=== PATIENT | female | born 1945 | race Caucasian/White ===

== ENCOUNTER 2017-10-17 16:04 | Emergency (ER) | payer MEDICARE, SELFPAY ==
[2017-10-17 16:09] VITALS: BP 145/84; PULSE 67; RESP 20; O2SAT 100
--- NOTE | 2017-10-17 16:24 | PC.NURSE ---
Pt reports h/o epilepsy. reports last seizure about 1 month ago. takes Keppra daily. Reports when i get worked up sometimes i have seizures pt calmed by RN and advised we will take some XR's. awaiting Juan Pablo velazco. Seizure pads in place for safety
--- NOTE | 2017-10-17 16:35 | DI.RAD.S_ITS ---
PROCEDURE: XR HIP W PEL IF DONE RT 2V INDICATIONS: hip pain after fall. TECHNIQUE: 2 views of the hip were acquired. COMPARISON: None. FINDINGS: Bones: No fractures or dislocations. No suspicious bony lesions. The visualized pelvic ring appears intact. Soft tissues: No suspicious soft tissue calcifications or masses. IMPRESSION: No trauma found. Dictated by: Pravin Velazquez M.D. on 10/17/2017 at 17:00 Approved by: Pravin Velazquez M.D. on 10/17/2017 at 17:00
--- NOTE | 2017-10-17 16:46 | DI.RAD.S_ITS ---
PROCEDURE: XR ANKLE RT MIN 3V INDICATIONS: ankle pain after fall TECHNIQUE: 3 views of the ankle were acquired. COMPARISON: None. FINDINGS: Bones: No fractures or dislocations. Ankle mortise is normally aligned. No suspicious bony lesions. Soft tissues: No tibiotalar joint effusion. Achilles tendon appears normal. IMPRESSION: No trauma. Dictated by: Pravin Velazquez M.D. on 10/17/2017 at 17:02 Approved by: Pravin Velazquez M.D. on 10/17/2017 at 17:03
--- NOTE | 2017-10-17 17:16 | ED.FALL ---
HPI - Fall <Jaycee Al PA-C - Last Filed: 10/17/17 22:30> General Chief Complaint: Fall Stated Complaint: RT FOOT INJURY AND HIP Time Seen by Provider: 10/17/17 17:16 Source: patient and family Limitations: no limitations History of Present Illness HPI Narrative: This 71-year-old female comes in due to ground level fall. She twisted her right ankle on a rock, then fell onto her knees and her right ankle. She states that she has had severe pain since then and can't bear weight. She initially felt most of the pain in her ankle, but states she feels like the pain radiates all the way from her low back and hip area down her leg, but also feels like it is numb between her right ankle and knee. She states that it is hard for her to tell whether the leg is weak, thinks that her inability to move it is due to pain. She denies any head contusion or LOC. She denies any neck pain or any other injury. She states that she simply slipped, no chest pain, palpitations or other new symptoms preceding the fall Related Data Home Medications Medication Instructions Recorded Confirmed Calcium-Magnesium Complex 1 tab PO DAILY 10/17/17 10/17/17 Dry Vitamin D 1 tab PO DAILY 10/17/17 10/17/17 cyanocobalamin (vitamin B-12) 1,000 mcg PO DAILY 10/17/17 10/17/17 [Vitamin B-12] ibuprofen [Advil] 1 tab PO PRN PRN 10/17/17 10/17/17 levetiracetam 750 mg PO Q12H 10/17/17 10/17/17 Previous Rx's Medication Instructions Recorded diazepam [Valium] 2 mg PO Q8H PRN #7 tab 10/17/17 Allergies Allergy/AdvReac Type Severity Reaction Status Date / Time acetaminophen [From Tylenol] Allergy Verified 10/17/17 16:29 aspirin Allergy Verified 10/17/17 16:29 codeine Allergy Verified 10/17/17 16:29 latex Allergy Verified 10/17/17 16:29 levofloxacin [From Levaquin] Allergy Verified 10/17/17 16:29 Penicillins Allergy Verified 10/17/17 16:29 Exam <Jaycee Al PA-C - Last Filed: 10/17/17 22:30> Narrative Exam Narrative: GENERAL APPEARANCE: Patient sitting comfortably, in no distress. LUNGS: Clear to auscultation bilaterally. HEART: Rate and rhythm regular with faint systolic murmur, normal S1 and S2, no S3 or S4. MUSCULOSKELETAL: Point tender over the right inferior paraspinal musculature and SI joint. She does not seem tender over the lateral hip, but is tender at the proximal medial femur. No tenderness over the distal femur, knee, tibia or fibula. Tender over the right medial ankle around the malleolus. She has virtually no a ROM of any joint in her right lower extremity including the toes secondary to tenderness, tolerates passive range of motion of the knee but no external rotation of the hip at all secondary to tenderness, +Trent's test NEUROVASCULAR: Sensation is grossly intact over the lower extremities. Difficult to palpate right PT pulse secondary to tenderness, but all pedal pulses are easily audible with Doppler EXTREMITIES: No cyanosis, no edema Initial Vital Signs Initial Vital Signs: Vital Signs Pulse Rate 67 10/17/17 16:09 Respiratory Rate 20 10/17/17 16:09 Blood Pressure 145/84 H 10/17/17 16:09 Pulse Oximetry 100 10/17/17 16:09 <Benjamin Frias MD - Last Filed: 10/18/17 03:13> Initial Vital Signs Initial Vital Signs: Vital Signs Pulse Rate 67 10/17/17 16:09 Respiratory Rate 20 10/17/17 16:09 Blood Pressure 145/84 H 10/17/17 16:09 Pulse Oximetry 100 10/17/17 16:09 Course <Jaycee Al PA-C - Last Filed: 10/17/17 22:30> Additional Information: Due to patient's degree of pain and immobility, I asked Dr. Frias to evaluate her as well. He agrees with evaluation and treatment plan. She does not appear to have any acute fracture. Patient was able to mobilize with ankle immobilizer and crutches. She is visiting from out of town and understands that she should return if any acutely worsening symptoms. She did have significant improvement in her pain with ibuprofen and a low dose of Valium. She was given 1 tablet to take home and split in half for tonight or morning if needed and a small prescription to take to the pharmacy. Orders Ordered: ED Orders 10/17/17 19:13 CT pelvis wo con Stat Discontinued Medications Diazepam (Valium) 2.5 mg PO NOW ONE Stop: 10/17/17 18:11 Last Admin: 10/17/17 18:42 Dose: 2.5 mg Diazepam (Valium) 2 mg PO NOW ONE Stop: 10/17/17 21:11 Last Admin: 10/17/17 21:22 Dose: Not Given Diazepam (Valium) 5 mg PO NOW ONE Stop: 10/17/17 21:20 Last Admin: 10/17/17 21:24 Dose: 5 mg Ibuprofen (Advil) 400 mg PO NOW ONE Stop: 10/17/17 17:34 Last Admin: 10/17/17 17:44 Dose: 400 mg Vital Signs - 8 hr 10/17/17 21:45 Pulse Rate 63 Respiratory Rate 16 Blood Pressure 128/87 H Pulse Oximetry 100 <Benjamin Frias MD - Last Filed: 10/18/17 03:13> Orders Ordered: ED Orders 10/17/17 19:13 CT pelvis wo con Stat Discontinued Medications Diazepam (Valium) 2.5 mg PO NOW ONE Stop: 10/17/17 18:11 Last Admin: 10/17/17 18:42 Dose: 2.5 mg Diazepam (Valium) 2 mg PO NOW ONE Stop: 10/17/17 21:11 Last Admin: 10/17/17 21:22 Dose: Not Given Diazepam (Valium) 5 mg PO NOW ONE Stop: 10/17/17 21:20 Last Admin: 10/17/17 21:24 Dose: 5 mg Ibuprofen (Advil) 400 mg PO NOW ONE Stop: 10/17/17 17:34 Last Admin: 10/17/17 17:44 Dose: 400 mg Vital Signs - 8 hr 10/17/17 21:45 Pulse Rate 63 Respiratory Rate 16 Blood Pressure 128/87 H Pulse Oximetry 100 MDM - Fall <Jaycee Al PA-C - Last Filed: 10/17/17 22:30> Imaging Data extremity: Radiologist's impression: View Report History [address] [address] XRay Report Signed Patient: TIFFANIE ARVIZU MR#: [id number] : 1945 Acct:[id number] Age/Sex: 71 / F Date of Service: 10/17/17 Loc: ED Accession Number: [id number] Procedure: XR hip w pel if done RT 2V Ordering Provider: Karina Kelly D.O. PROCEDURE: XR HIP W PEL IF DONE RT 2V INDICATIONS: hip pain after fall. TECHNIQUE: 2 views of the hip were acquired. COMPARISON: None. FINDINGS: Bones: No fractures or dislocations. No suspicious bony lesions. The visualized pelvic ring appears intact. Soft tissues: No suspicious soft tissue calcifications or masses. IMPRESSION: No trauma found. Dictated by: Pravin Velazquez M.D. on 10/17/2017 at 17:00 Approved by: Pravin Velazquez M.D. on 10/17/2017 at 17:00 [place] [address] XRay Report Signed Patient: TIFFANIE ARVIZU MR#: [id number] : 1945 Acct:[id number] Age/Sex: 71 / F Date of Service: 10/17/17 Loc: ED Accession Number: [id number] Procedure: XR ankle RT min 3V Ordering Provider: Karina Kelly D.O. PROCEDURE: XR ANKLE RT MIN 3V INDICATIONS: ankle pain after fall TECHNIQUE: 3 views of the ankle were acquired. COMPARISON: None. FINDINGS: Bones: No fractures or dislocations. Ankle mortise is normally aligned. No suspicious bony lesions. Soft tissues: No tibiotalar joint effusion. Achilles tendon appears normal. IMPRESSION: No trauma. Dictated by: Pravin Velazquez M.D. on 10/17/2017 at 17:02 Approved by: Pravin Velazquez M.D. on 10/17/2017 at 17:[address] [address] XRay Report Signed Patient: TIFFANIE ARIVZU MR#: [id number] : 1945 Acct:[id number] Age/Sex: 71 / F Date of Service: 10/17/17 Loc: ED Accession Number: [id number] Procedure: XR femur RT min 2V Ordering Provider: Jaycee Al P.A-C PROCEDURE: XR FEMUR RT MIN 2V INDICATIONS: pain, fall TECHNIQUE: 4 views of the femur were acquired. COMPARISON: None. FINDINGS: Bones: No fractures or dislocations. No suspicious bony lesions. Mild right hip joint degeneration. Soft tissues: No suspicious soft tissue calcifications or masses. IMPRESSION: No fracture Dictated by: Arnulfo Gilliam M.D. on 10/17/2017 at 18:53 Approved by: Arnulfo Gilliam M.D. on 10/17/2017 at 18:54 [place] [address] CT Scan Report Signed Patient: TIFFANIE ARVIZU MR#: [id number] : 1945 Acct:[id number] Age/Sex: 71 / F Date of Service: 10/17/17 Loc: ED Accession Number: [id number] Procedure: CT pelvis wo con Ordering Provider: Jaycee Al P.A-C PROCEDURE: CT PEL WO CON INDICATIONS: pain, concern for occult fx TECHNIQUE: Noncontrast 3 mm axial sections acquired through the bony pelvis, with coronal and sagittal reformatting. COMPARISON: [facility], CR, XR HIP W PEL IF DONE RT 2V, 10/17/2017, 16:22. FINDINGS: Image quality: Excellent. Bones: No fracture or focal osseous destruction. There is anatomic alignment. Presumed subcentimeter bone island seen in the right acetabular roof, technically nonspecific. Soft tissues: Intrapelvic contents and bladder are unremarkable. No pelvic free fluid. IMPRESSION: No fracture identified. Dictated by: Arnulfo Gilliam M.D. on 10/17/2017 at 20:19 Approved by: Arnulfo Gilliam M.D. on 10/17/2017 at 20:23 spine: Radiologist's impression: [place] [address] CT Scan Report Signed Patient: TIFFANIE ARVIZU MR#: [id number] : 1945 Acct:[id number] Age/Sex: 71 / F Date of Service: 10/17/17 Loc: ED Accession Number: [id number] Procedure: CT lumbar spine wo con Ordering Provider: Jaycee Al P.A-C PROCEDURE: CT LUMBAR SPINE WO CON INDICATIONS: fall, low back pain, Lower extremity pain, ?fx TECHNIQUE: Noncontrast 3 mm thick sections acquired from the T12 level to the sacrum. Sagittal and coronal reformats were constructed. For radiation dose reduction, the following was used: automated exposure control. COMPARISON: None. FINDINGS: Image quality: Excellent. Bones: There is normal bony alignment. No acute vertebral body compression fractures. No suspicious lytic or blastic bony lesions. Central spinal caliber is of normal overall caliber. No pars defects. Mild to moderate disc degeneration at L1-L2 and L2-L3. There is mild L5-S1 disc degeneration. Soft tissues: No retroperitoneal masses or hematomas. Low attenuation (minus 5 Hounsfield units) left adrenal nodule presumably adrenal adenoma Visualized aorta is normal in caliber. IMPRESSION: No fracture. Mild multilevel lumbar disc degeneration as above. Dictated by: Arnulfo Gilliam M.D. on 10/17/2017 at 18:29 Approved by: Arnulfo Gililam M.D. on 10/17/2017 at 18:33 Discharge Plan Departure Patient Disposition: Home, Self-Care Clinical Impression: Contusion of leg, right, multiple sites Discharge Date/Time: 10/17/17 21:47 Interventions: ED Discharge Assessment Last Done: 10/17/17 21:45 Instructions: DI for Ankle Sprain, DI for Hip Pain Activity Restrictions/Additional Instructions: We were concerned about you having a fracture today given your fall and the pain you had, however your testing does not show an acute bone injury. It is most likely that you have deep bruises and sprains, but if you have any acutely worsening symptoms while you are here, please return. Take ibuprofen 400 mg every 8 hr for pain, and you can add the Valium/diazepam if needed for muscle relaxant that I prescribed for you. I have given you 1 tablet to take home, and you may take 1/2 of that every 8 hr if needed. I also did a prescription for you to fill at the pharmacy tomorrow if needed and that will be 1 tablet at a time. Please be very careful with taking that as it can make you sleepy. Elevate your leg to might and tomorrow and rest. A little bit of gentle walking is okay on flat ground as you can tolerate. Prescriptions: New diazepam [Valium] 2 mg tablet 2 mg PO Q8H PRN (Reason: muscle spasm) Qty: 7 RF: 0 No Action cyanocobalamin (vitamin B-12) [Vitamin B-12] 1,000 mcg Tablet 1,000 mcg PO DAILY RF: 0 levetiracetam 750 mg Tablet 750 mg PO Q12H RF: 0 Calcium-Magnesium Complex 1,000 mg tablet 1 tab PO DAILY RF: 0 Dry Vitamin D 1,000 units tablet 1 tab PO DAILY RF: 0 ibuprofen [Advil] 200 mg Tablet 1 tab PO PRN PRN (Reason: Pain, Mild) RF: 0 Referrals: Natalie Venegas [Other] <Benjamin Frias MD - Last Filed: 10/18/17 03:13> Cosign ED Attending Realature Attestation: I was available in the ER department for consultation and assistance if necessary. I agree with the content of the note and the treatment plan.
--- NOTE | 2017-10-17 17:34 | DI.CT.S_ITS ---
PROCEDURE: CT LUMBAR SPINE WO CON INDICATIONS: fall, low back pain, Lower extremity pain, ?fx TECHNIQUE: Noncontrast 3 mm thick sections acquired from the T12 level to the sacrum. Sagittal and coronal reformats were constructed. For radiation dose reduction, the following was used: automated exposure control. COMPARISON: None. FINDINGS: Image quality: Excellent. Bones: There is normal bony alignment. No acute vertebral body compression fractures. No suspicious lytic or blastic bony lesions. Central spinal caliber is of normal overall caliber. No pars defects. Mild to moderate disc degeneration at L1-L2 and L2-L3. There is mild L5-S1 disc degeneration. Soft tissues: No retroperitoneal masses or hematomas. Low attenuation (minus 5 Hounsfield units) left adrenal nodule presumably adrenal adenoma Visualized aorta is normal in caliber. IMPRESSION: No fracture. Mild multilevel lumbar disc degeneration as above. Dictated by: Arnulfo Gilliam M.D. on 10/17/2017 at 18:29 Approved by: Arnulfo Gilliam M.D. on 10/17/2017 at 18:33
[2017-10-17] MEDS: IBUPROFEN 400 MG TABLET PO (17:44)
--- NOTE | 2017-10-17 17:52 | DI.RAD.S_ITS ---
PROCEDURE: XR FEMUR RT MIN 2V INDICATIONS: pain, fall TECHNIQUE: 4 views of the femur were acquired. COMPARISON: None. FINDINGS: Bones: No fractures or dislocations. No suspicious bony lesions. Mild right hip joint degeneration. Soft tissues: No suspicious soft tissue calcifications or masses. IMPRESSION: No fracture Dictated by: Arnulfo Gilliam M.D. on 10/17/2017 at 18:53 Approved by: Arnulfo Gilliam M.D. on 10/17/2017 at 18:54
[2017-10-17] MEDS: diazePAM 5 MG TABLET 2.5 MG PO (18:42)
--- NOTE | 2017-10-17 19:13 | DI.CT.S_ITS ---
PROCEDURE: CT PEL WO CON INDICATIONS: pain, concern for occult fx TECHNIQUE: Noncontrast 3 mm axial sections acquired through the bony pelvis, with coronal and sagittal reformatting. COMPARISON: [facility], CR, XR HIP W PEL IF DONE RT 2V, 10/17/2017, 16:22. FINDINGS: Image quality: Excellent. Bones: No fracture or focal osseous destruction. There is anatomic alignment. Presumed subcentimeter bone island seen in the right acetabular roof, technically nonspecific. Soft tissues: Intrapelvic contents and bladder are unremarkable. No pelvic free fluid. IMPRESSION: No fracture identified. Dictated by: Arnulfo Gilliam M.D. on 10/17/2017 at 20:19 Approved by: Arnulfo Gillaim M.D. on 10/17/2017 at 20:23
[2017-10-17] MEDS: diazePAM 5 MG TABLET PO (21:24)
[2017-10-17 21:45] VITALS: BP 128/87; PULSE 63; RESP 16; O2SAT 100
== END 2017-10-17 21:47 | disposition home or self-care (01) ==
PROVIDERS: Emergency Provider Internal Medicine
DX: S80.11XA Contusion of right lower leg, initial encounter (principal); W18.30XA Fall on same level, unspecified, initial encounter
CPT/HCPCS: 29540; 72131; 72192; 73502; 73552; 73610; 99283; 99284